=== PATIENT | male | born 1960 | race Caucasian/White ===

== ENCOUNTER 2018-04-20 11:02 | Day surgery (SDC) | payer OTHER ==
[~2018-04-20 11:02] MED LIST: TRANEXAMIC ACID 1,000 MG in DEXTROSE 5% 100 ML IVPB
[2018-04-20] MEDS ORDERED: CEFAZOLIN 1 GM INJ (12:01)
[2018-04-20] MEDS ORDERED: ROPIVACAINE 0.5 % 30 ML VIAL (12:01)
[2018-04-20] MEDS ORDERED: LIDOCAINE 2% (SDV) 5 ML INJ (12:01)
[2018-04-20] MEDS ORDERED: PROPOFOL 20 ML (12:01)
[2018-04-20] MEDS: GABAPENTIN 300 MG CAP PO (12:07)
[2018-04-20] MEDS: traMADol 50 MG TAB PO (12:07)
[2018-04-20] MEDS: DEXAMETHASONE 4 MG TAB PO (12:07)
[2018-04-20] MEDS ORDERED: ONDANSETRON 4 MG INJ (13:50)
[2018-04-20] MEDS ORDERED: METOCLOPRAMIDE 10 MG INJ (13:50)
[2018-04-20] MEDS ORDERED: LABETALOL HCL 20MG INJ (14:06)
[2018-04-20] MEDS: POLYMYXIN/BACITRACIN 1L IRRIG (14:33)
[2018-04-20] MEDS: HYDROmorphONE 1 MG/5 ML IV SYRINGE IV ×2 (15:53→16:01)
[2018-04-20] MEDS: FENTAnyl 50 MCG/ML VIAL IV ×2 (15:54→16:01)
[2018-04-20] MEDS ORDERED: HYDROmorphONE 1 MG/5 ML IV SYRINGE IV ×2 (16:00)
[2018-04-20] MEDS ORDERED: OXYCODONE/ACETAMINOPHEN (5/325) TAB PO (16:00)
[2018-04-20] MEDS ORDERED: LABETALOL HCL 20MG INJ IV (16:00)
[2018-04-20] MEDS ORDERED: EPHEDrine SULFATE 50 MG/5 ML SYG IV (16:00)
[2018-04-20] MEDS ORDERED: METOCLOPRAMIDE 10 MG INJ IV (16:00)
[2018-04-20] MEDS ORDERED: FENTAnyl 50 MCG/ML VIAL IV ×2 (16:00)
[2018-04-20] MEDS ORDERED: hydrALAzine 20 MG INJ IV (16:00)
[2018-04-20] MEDS ORDERED: DIPHENHYDRAMINE 50 MG INJ IV (16:00)
[2018-04-20] MEDS ORDERED: MIDAZOLAM 1 MG/ML 2 ML INJ IV (16:00)
[2018-04-20] MEDS: ONDANSETRON 4 MG INJ IV (16:05)
[2018-04-20] MEDS: OXYCODONE/ACETAMINOPHEN (5/325) TAB PO (16:06)
[2018-04-20] MEDS: MEPERIDINE 25 MG INJ IV (16:06)
== END 2018-04-20 17:23 | disposition home or self-care (01) ==
LOC: REC 11:02 → SDS 11:02
DX: M75.102 Unspecified rotator cuff tear or rupture of left shoulder, not specified as traumatic (principal); M75.02 Adhesive capsulitis of left shoulder; Z96.612 Presence of left artificial shoulder joint; E78.5 Hyperlipidemia, unspecified
CPT/HCPCS: 23020